=== PATIENT | male | born 1960 | race Caucasian/White ===

== ENCOUNTER 2022-04-30 18:44 | Inpatient (IN) | payer OTHER ==
[2022-04-30 20:08] VITALS: BMI 21.1
[2022-04-30] MEDS ORDERED: P-EPHED 60MG/TRIPROLIDI 2.5MG TABLET PO PRN (21:23)
[2022-04-30] MEDS ORDERED: guaiFENesin 200 MG/10 ML 10 ML UNIT-DOSE CUPS PO PRN (21:23)
[2022-04-30] MEDS ORDERED: ACETAMINOPHEN 325 MG TABLET (FP) PO PRN ×2 (21:23)
[2022-04-30] MEDS ORDERED: LOPERAMIDE HCL 2 MG CAPSULE PO PRN (21:23)
[2022-04-30] MEDS ORDERED: chlordiazePOXIDE HCL 25 MG CAPSULE PO PRN (21:23)
[2022-04-30] MEDS ORDERED: METHOCARBAMOL 500 MG TABLET PO PRN (21:23)
[2022-04-30] MEDS ORDERED: MAGNESIUM CITRATE 300 ML BOTTLE PO PRN (21:23)
[2022-04-30] MEDS ORDERED: DICYCLOMINE HCL 10 MG CAPSULE PO PRN (21:23)
[2022-04-30] MEDS ORDERED: BISMUTH SUBSALICYLATE 524 MG/30 ML PO PRN (21:23)
[2022-04-30] MEDS ORDERED: ONDANSETRON *ODT* 4 MG TABLET SL PRN (21:23)
[2022-04-30] MEDS ORDERED: MAGNESIUM HYDROX 2400MG/30ML ORAL SUSPENSION 30 ML CUP PO PRN (21:23)
[2022-04-30] MEDS ORDERED: BENZOCAINE/MENTHOL (CHLORASEPTIC ) LOZENGE MM PRN (21:23)
[2022-04-30] MEDS ORDERED: IBUPROFEN 600 MG TABLET (FP) PO PRN (21:23)
[2022-04-30] MEDS ORDERED: MAG HYDROX/AL HYDROX/SIMETH 30 ML UNIT-DOSE CUP PO PRN (21:23)
[2022-04-30] MEDS ORDERED: chlordiazePOXIDE HCL 25 MG CAPSULE ONE (21:59)
[2022-04-30] MEDS: THIAMINE HCL 100 MG TABLET (FP) PO SCH (23:39)
[2022-04-30] MEDS: MELATONIN 5 MG TABLETS PO SCH (23:39)
[2022-04-30] MEDS: chlordiazePOXIDE HCL 25 MG CAPSULE PO SCH (23:40)
[2022-05-01] MEDS: chlordiazePOXIDE HCL 25 MG CAPSULE PO SCH ×2 (06:18→10:15)
[2022-05-01] MEDS: TAMSULOSIN HCL 0.4 MG CAP PO SCH (10:15)
[2022-05-01] MEDS: PRENATAL VITAMINS W/ FOLIC ACID TABLET (FP) PO SCH (10:15)
[2022-05-01] MEDS: NICOTINE 21 MG/24 HOURS TOPICAL PATCH TD SCH (10:18)
[2022-05-01 10:53] LABS: HEMATOCRIT 33.6 % (35.4-49); HEMOGLOBIN 11.5 GM/dL (11.7-16.9); MCH 32.6 pg (25.7-33.7); MCHC 34.3 g/dl (32.0-35.9); MEAN PLT VOLUME 8.1 fl (7.5-11.1); PLATELET COUNT 120 10^3/uL (134-434); RBC 3.54 M/mm3 (4.00-5.60); RDW 13.3 % (11.9-15.9); WHITE BLOOD COUNT 3.2 K/mm3 (4.0-10.0)
[2022-05-01 10:55] LABS: CHLORIDE 103 mmol/L (98-107); SODIUM 142 mmol/L (136-145)
[2022-05-01 11:48] LABS: CO2 31 mmol/L (21-32)
[2022-05-01 11:52] LABS: ALBUMIN 3.2 g/dl (3.4-5.0); BLOOD UREA NITROGEN 8.5 mg/dL (7-18); CALCIUM 8.8 mg/dL (8.5-10.1); GLUCOSE,RANDOM 150 mg/dL (74-106)
[2022-05-01 11:55] LABS: CREATININE 0.6 mg/dL (0.55-1.3); SGOT/AST 156 U/L (15-37); SGPT/ALT 119 U/L (13-61)
[2022-05-01 11:57] LABS: BILIRUBIN,TOTAL 1.1 mg/dL (0.2-1)
[2022-05-01 11:58] LABS: ALK PHOS 51 U/L (45-117)
[2022-05-01 12:00] LABS: ANION GAP 8 MMOL/L (8-16)
[2022-05-01] MEDS ORDERED: POTASSIUM CHLORIDE TABS 20 MEQ TABLET.ER (FP) PO ONE (12:08)
[2022-05-01] MEDS ORDERED: LORazepam 1 MG TABLET PO PRN (12:13)
[2022-05-01] MEDS: LORazepam 2 MG TABLET PO SCH ×2 (18:11→22:40)
[2022-05-01] MEDS: IBUPROFEN 400 MG TABLET (FP) PO PRN (18:14)
[2022-05-01] MEDS: THIAMINE HCL 100 MG TABLET (FP) PO SCH (22:40)
[2022-05-01] MEDS: MELATONIN 5 MG TABLETS PO SCH (22:40)
[2022-05-02] MEDS ORDERED: chlordiazePOXIDE HCL 25 MG CAPSULE PO SCH (05:00)
[2022-05-02] MEDS: LORazepam 2 MG TABLET PO SCH ×4 (05:55→22:26)
[2022-05-02 10:14] LABS: CALCIUM 8.6 mg/dL (8.5-10.1)
[2022-05-02 10:18] LABS: CREATININE 0.6 mg/dL (0.55-1.3)
[2022-05-02] MEDS: NICOTINE 21 MG/24 HOURS TOPICAL PATCH TD SCH (10:18)
[2022-05-02] MEDS: PRENATAL VITAMINS W/ FOLIC ACID TABLET (FP) PO SCH (10:18)
[2022-05-02] MEDS: TAMSULOSIN HCL 0.4 MG CAP PO SCH (10:18)
[2022-05-02 10:19] LABS: BILIRUBIN,TOTAL 0.7 mg/dL (0.2-1); TOT PROT 5.8 g/dl (6.4-8.2)
[2022-05-02] MEDS ORDERED: POTASSIUM CHLORIDE TABS 20 MEQ TABLET.ER (FP) PO ONE (11:37)
[2022-05-02] MEDS: MELATONIN 5 MG TABLETS PO SCH (22:26)
[2022-05-02] MEDS: THIAMINE HCL 100 MG TABLET (FP) PO SCH (22:26)
[2022-05-03] MEDS ORDERED: chlordiazePOXIDE HCL 10 MG CAPSULE PO PRN
[2022-05-03] MEDS ORDERED: chlordiazePOXIDE HCL 10 MG CAPSULE PO SCH (05:00)
[2022-05-03] MEDS: LORazepam 1 MG TABLET PO SCH ×4 (05:32→22:30)
[2022-05-03] MEDS: NICOTINE 21 MG/24 HOURS TOPICAL PATCH TD SCH (10:56)
[2022-05-03] MEDS: PRENATAL VITAMINS W/ FOLIC ACID TABLET (FP) PO SCH (10:57)
[2022-05-03] MEDS: TAMSULOSIN HCL 0.4 MG CAP PO SCH (10:57)
[2022-05-03] MEDS: IBUPROFEN 400 MG TABLET (FP) PO PRN (17:54)
[2022-05-03] MEDS: NICOTINE POLACRILEX 2 MG GUM BUC PRN (19:30)
[2022-05-03] MEDS: THIAMINE HCL 100 MG TABLET (FP) PO SCH (22:30)
[2022-05-03] MEDS: hydrOXYzine PAMOATE 25 MG CAPSULE (FP) PO PRN (22:30)
[2022-05-03] MEDS: MELATONIN 5 MG TABLETS PO SCH (22:30)
[2022-05-04] MEDS ORDERED: LORazepam 0.5 MG TABLET PO PRN
[2022-05-04] MEDS ORDERED: chlordiazePOXIDE HCL 10 MG CAPSULE PO SCH (05:00)
[2022-05-04] MEDS: LORazepam 0.5 MG TABLET PO SCH ×4 (05:50→22:12)
[2022-05-04] MEDS: TAMSULOSIN HCL 0.4 MG CAP PO SCH (08:19)
[2022-05-04] MEDS: NICOTINE 21 MG/24 HOURS TOPICAL PATCH TD SCH (10:54)
[2022-05-04] MEDS: PRENATAL VITAMINS W/ FOLIC ACID TABLET (FP) PO SCH (10:54)
[2022-05-04] MEDS: hydrOXYzine PAMOATE 25 MG CAPSULE (FP) PO PRN (10:54)
[2022-05-04] MEDS: NICOTINE POLACRILEX 2 MG GUM BUC PRN (15:03)
[2022-05-04] MEDS: IBUPROFEN 400 MG TABLET (FP) PO PRN (18:01)
[2022-05-04] MEDS: THIAMINE HCL 100 MG TABLET (FP) PO SCH (22:12)
[2022-05-04] MEDS: MELATONIN 5 MG TABLETS PO SCH (22:12)
[2022-05-05] MEDS ORDERED: chlordiazePOXIDE HCL 10 MG CAPSULE PO ONE (05:00)
[2022-05-05] MEDS ORDERED: LORazepam 0.5 MG TABLET PO ONE (05:00)
[2022-05-05 09:09] VITALS: BP 134/95; PULSE 90; RESP 16; TEMP 98
[2022-05-05] MEDS: TAMSULOSIN HCL 0.4 MG CAP PO SCH (09:25)
[2022-05-05] MEDS: NICOTINE 21 MG/24 HOURS TOPICAL PATCH TD SCH (10:08)
[2022-05-05] MEDS: PRENATAL VITAMINS W/ FOLIC ACID TABLET (FP) PO SCH (10:08)
== END 2022-05-05 11:26 | disposition other institution (70) | DRG 897 ==
LOC: YASAS 18:44 → Y3N 22:08
PROVIDERS: ADMIT Allergy & Immunology; ATTEND Surgery
PROC: HZ2ZZZZ Detoxification Services for Substance Abuse Treatment (ICD-10-PCS; principal; 2022-04-30)
DX: F10.230 Alcohol dependence with withdrawal, uncomplicated (principal); F17.210 Nicotine dependence, cigarettes, uncomplicated; N40.0 Benign prostatic hyperplasia without lower urinary tract symptoms; E87.6 Hypokalemia; M54.9 Dorsalgia, unspecified; G89.29 Other chronic pain; K29.20 Alcoholic gastritis without bleeding; Z85.07 Personal history of malignant neoplasm of pancreas; Z56.0 Unemployment, unspecified; Z59.01 Sheltered homelessness
CPT/HCPCS: 36415; 80053; 85027; 86780; 93005; 93010; C9803-CS; U0003; U0005

== ENCOUNTER 2022-05-05 11:43 | Inpatient (IN) | payer OTHER ==
[2022-05-05] MEDS ORDERED: MAG HYDROX/AL HYDROX/SIMETH 30 ML UNIT-DOSE CUP PO PRN (13:03)
[2022-05-05] MEDS ORDERED: MAGNESIUM HYDROX 2400MG/30ML ORAL SUSPENSION 30 ML CUP PO PRN (13:03)
[2022-05-05] MEDS ORDERED: IBUPROFEN 400 MG TABLET (FP) PO PRN (13:03)
[2022-05-05] MEDS ORDERED: guaiFENesin 200 MG/10 ML 10 ML UNIT-DOSE CUPS PO PRN (13:03)
[2022-05-05] MEDS ORDERED: MAGNESIUM CITRATE 300 ML BOTTLE PO PRN (13:03)
[2022-05-05] MEDS ORDERED: LOPERAMIDE HCL 2 MG CAPSULE PO PRN (13:03)
[2022-05-05] MEDS ORDERED: ACETAMINOPHEN 325 MG TABLET (FP) PO PRN (13:03)
[2022-05-05] MEDS ORDERED: P-EPHED 60MG/TRIPROLIDI 2.5MG TABLET PO PRN (13:03)
[2022-05-05] MEDS ORDERED: hydrOXYzine PAMOATE 25 MG CAPSULE (FP) PO PRN (13:03)
[2022-05-05] MEDS ORDERED: BENZOCAINE/MENTHOL (CHLORASEPTIC ) LOZENGE MM PRN (13:03)
[2022-05-05] MEDS: MELATONIN 5 MG TABLETS PO SCH (21:05)
[2022-05-05] MEDS: THIAMINE HCL 100 MG TABLET (FP) PO SCH (21:05)
[2022-05-05] MEDS: ACETAMINOPHEN 325 MG TABLET (FP) PO PRN (21:06)
[2022-05-06] MEDS: TAMSULOSIN HCL 0.4 MG CAP PO SCH (10:14)
[2022-05-06] MEDS: PRENATAL VITAMINS W/ FOLIC ACID TABLET (FP) PO SCH (10:14)
[2022-05-06 10:37] LABS: ALBUMIN 3.6 g/dl (3.4-5.0)
[2022-05-06 10:38] LABS: CALCIUM 9.2 mg/dL (8.5-10.1)
[2022-05-06 10:39] LABS: BLOOD UREA NITROGEN 9.2 mg/dL (7-18)
[2022-05-06 10:41] LABS: CREATININE 0.6 mg/dL (0.55-1.3)
[2022-05-06 10:42] LABS: BILIRUBIN,TOTAL 0.5 mg/dL (0.2-1); TOT PROT 6.9 g/dl (6.4-8.2)
[2022-05-06] MEDS: NICOTINE 10 MG CARTRIDGE (INHALER) IH PRN (13:13)
[2022-05-06] MEDS: NICOTINE 21 MG/24 HOURS TOPICAL PATCH TD SCH (13:42)
[2022-05-06] MEDS: MELATONIN 5 MG TABLETS PO SCH (22:10)
[2022-05-06] MEDS: THIAMINE HCL 100 MG TABLET (FP) PO SCH (22:10)
[2022-05-07] MEDS: NICOTINE 10 MG CARTRIDGE (INHALER) IH PRN ×2 (07:04→14:26)
[2022-05-07] MEDS: NICOTINE 21 MG/24 HOURS TOPICAL PATCH TD SCH (10:06)
[2022-05-07] MEDS: PRENATAL VITAMINS W/ FOLIC ACID TABLET (FP) PO SCH (10:06)
[2022-05-07] MEDS: ACETAMINOPHEN 325 MG TABLET (FP) PO PRN ×2 (10:07→18:52)
[2022-05-07] MEDS: TAMSULOSIN HCL 0.4 MG CAP PO SCH (10:08)
[2022-05-07] MEDS: THIAMINE HCL 100 MG TABLET (FP) PO SCH (21:15)
[2022-05-07] MEDS: MELATONIN 5 MG TABLETS PO SCH (21:15)
[2022-05-08] MEDS: NICOTINE 10 MG CARTRIDGE (INHALER) IH PRN (06:11)
[2022-05-08 08:28] VITALS: RESP 18
[2022-05-08] MEDS: NICOTINE 21 MG/24 HOURS TOPICAL PATCH TD SCH (10:48)
[2022-05-08] MEDS: TAMSULOSIN HCL 0.4 MG CAP PO SCH (10:48)
[2022-05-08] MEDS: PRENATAL VITAMINS W/ FOLIC ACID TABLET (FP) PO SCH (10:48)
[2022-05-08] MEDS: THIAMINE HCL 100 MG TABLET (FP) PO SCH (21:36)
[2022-05-08] MEDS: MELATONIN 5 MG TABLETS PO SCH (21:36)
[2022-05-09 06:49] VITALS: TEMP 97.3
[2022-05-09] MEDS: NICOTINE 10 MG CARTRIDGE (INHALER) IH PRN (07:07)
[2022-05-09] MEDS: PRENATAL VITAMINS W/ FOLIC ACID TABLET (FP) PO SCH (10:10)
[2022-05-09] MEDS: TAMSULOSIN HCL 0.4 MG CAP PO SCH (10:10)
[2022-05-09 10:11] VITALS: BP 115/75; PULSE 90
[2022-05-09] MEDS: NICOTINE 21 MG/24 HOURS TOPICAL PATCH TD SCH (10:11)
== END 2022-05-09 11:33 | disposition home or self-care (01) | DRG 895 ==
LOC: YASAS 11:43 → Y3W 11:44
PROVIDERS: ADMIT Psychiatry & Neurology Pain Medicine; ATTEND Psychiatry & Neurology Pain Medicine
PROC: HZ42ZZZ Group Counseling for Substance Abuse Treatment, Cognitive-Behavioral (ICD-10-PCS; principal; 2022-05-05)
DX: F10.20 Alcohol dependence, uncomplicated (principal); F17.210 Nicotine dependence, cigarettes, uncomplicated; N40.0 Benign prostatic hyperplasia without lower urinary tract symptoms; K29.20 Alcoholic gastritis without bleeding; M54.9 Dorsalgia, unspecified; G89.29 Other chronic pain; Z85.07 Personal history of malignant neoplasm of pancreas; Z59.01 Sheltered homelessness
CPT/HCPCS: 36415; 80053